=== PATIENT | female | born 1995 | race Caucasian/White ===

== ENCOUNTER 2019-05-14 07:27 | Inpatient (IN) ==
--- OUTSIDE RECORDS SUMMARY | 2019-05-14 07:31 | External Medical Summary | Continuity of Care Document ---
:1995 Author Name Dami Galvin Address Unavailable Unavailable , Care Team Providers Name Role Phone Unavailable Unavailable Unavailable Chon Sewell PA-C Unavailable [email or web address] Acute sinusitis (461.9) (J01.90) Allergies and Adverse Reactions Allergy history not documented Medications Azithromycin 250 MG Oral Tablet; Two tab lets p.o. x one day, then one tablet p.o. x 4 days. stay off medicine for 5 days. then repeat. AMBER Sewell Start: 02-Apr-2010 Quantity: 6 Refills: 1 Procedures History of Tonsillectomy With Adenoidectomy Status: Completed Immunizations Hepatitis B On: 1993 Hepatitis B On: 1993 IPV On: 1993 HIB On: 1993 DTaP On: 1993 IPV On: 1993 HIB On: 1993 DTaP On: 1993 Hepatitis B On: 04-Feb-1994 HIB On: May-1994 DTaP On: May-1994 MMR On: 20-Nov-1994 IPV On: 21-Jan-1995 HIB On: 21-Jan-1995 DTaP On: 21-Jan-1995 IPV On: 12-Dec-1998 DTaP On: 12-Dec-1998 MMR On: 12-Dec-1998 PPD On: 12-Dec-1998 Decavac 5-2 LFU INJ On: 16-Apr-2005 Meningo (Menactra) On: 23-Mar-2008 HPV (Gardasil) On: 23-Mar-2008 HPV (Gardasil) On: Jun-2008 Varicella Comments:had disease Family History Grandfather Family history of Diabetes Mellitus (V18.0) Status: Active Plan of Treatment Planned Observations Planned Goals not documented Results No Known Results Results not documented
[2019-05-14] MEDS ORDERED: OXYTOCIN 30 UNITS/500 ML BAG IV PRN ×3 (07:49→21:16)
[2019-05-14 08:09] LABS: Hematocrit (blood only) 34.4 % (37-47); Hemoglobin 11.9 g/dL (12.0-16.0); Mean Corpuscular Volume 81.9 fL (80-100); Mean Platelet Volume 11.3 fL (7.4-10.4); Platelet Count 195 K/uL (130-400); RDW Coefficient of Variation 14.5 % (11.5-14.5); RDW Standard Deviation 42.7 fL (36.4-46.3); White Blood Count 12.39 K/uL (4.8-10.8)
--- NOTE | 2019-05-14 08:52 | Obstetrical Progress Note ---
Date of Service May 14, 2019 Subjective Admission Note 23 F P0000 at 42 weeks admitted for induction of labor for post dates. She is GBS negative. Cervix 4/80/-2/vertex/soft/anterior/intact. EFW 7.5 lbs. Will start with Oxytocin for induction. Anticipate normal delivery. Results & Data Vital Signs (Past 12 Hours) Vital Signs Temp Pulse Resp BP 05/14/19 07:50 107 H 154/97 H 05/14/19 07:44 37.2 C 18 05/14/19 07:34 109 H 165/95 H
[2019-05-14 08:57] LABS: Mean Corpuscular Hgb Conc 34.6 g/dL (32-36)
[2019-05-14] MEDS: LACTATED RINGER'S 1,000 ML IV PRN ×3 (09:08→17:34)
[2019-05-14] MEDS ORDERED: BUPIVACAINE 0.25% 30 ML VIAL ONE (12:07)
[2019-05-14] MEDS ORDERED: ePHEDrine sulfate 50 MG/ML AMP ONE (12:08)
[2019-05-14] MEDS ORDERED: fentaNYL 2MCG/ML ROPIV 1.25MG/ML 100 ML BAG EPI ONE (12:08)
[2019-05-14] MEDS ORDERED: fentaNYL citrate 100 MCG/2 ML VIAL ONE (12:08)
--- NOTE | 2019-05-14 12:14 | History & Physical Report ---
Date of Service May 14, 2019 Assessment & Plan (1) Post-dates : 23 yo at 41 wks, IOL for postdates Elevated BP's, h/o elevated LFT's with normal levels in 3rd trimester On pitocin with ctxs and cervical change Plan monitor, labs, epidural for pain Anticipate (2) Hypertension affecting in third trimester: History of Present Illness Chief Complaint: Induction Primary Care Provider: NO PCP Patient is a 23 yo at 41 wks admitted for IOL for postdates by Dr. Daly She is on pitocin since this morning Feels ctxs and getting painful No LOF/VB +FM Her has samson uncomplicated except 1) Obesity, passed 3 hour OGTT 2) Elevated LFT's, early and has been normal 3) Cholelithiasis, denies pain Allergies Allergy/AdvReac Type Severity Reaction Status Date / Time No Known Allergies Allergy Mild Verified 05/14/19 07:38 Home Medications Home Medications Medication Instructions Recorded Confirmed Type vit no.[id number]-[id number]-lakjv 1 tab PO DAILY 05/14/19 05/14/19 History [ Vitamin] Patient History Medical History H/O tooth extraction Hx of fracture of leg right lower leg Surgical History History of tonsillectomy and adenoidectomy Social History Preferred Language: Stateless Communication Ability: Effective Beliefs That Will Affect Care: None marital status: Current Living Situation: Spouse Other Information That Helps Us Care for You: No Feels Safe at Home: Yes Safety Concerns: Feels Safe At This Time Smoking Status: Never smoker Hx Alcohol Use: No Hx Substance Use: No [employer] History denies any h/o STD's Review of Systems All systems reviewed & are unremarkable except as noted in HPI & below Physical Exam Constitutional: WD/WN, vitals as above well developed and well nourished Genitourinary: VE; 4-5 cm/ 80%/ -2, bulging bag Results & Data Vital Signs (Past 12 Hours) Vital Signs Temp Pulse Resp BP 05/14/19 12:00 85 18 147/83 H 05/14/19 11:20 77 143/87 H 05/14/19 10:50 37.0 C 16 05/14/19 10:41 73 132/71 05/14/19 09:08 90 135/80 05/14/19 09:04 16 05/14/19 07:50 107 H 154/97 H 05/14/19 07:44 37.2 C 05/14/19 07:34 109 H 165/95 H Code Status & VTE Plan VTE Prophylaxis Plan VTE Prophylaxis will be ordered: No Monitoring External Monitor Category I Tocodynamometer Contractions: q 2-3 min
[2019-05-14] MEDS ORDERED: NALOXONE HCL 0.4 MG/1 ML VIAL/CARP IV PRN (12:18)
[2019-05-14] MEDS ORDERED: NALOXONE HCL 1 MG in SODIUM CHLORIDE 0.9% 1000ML 1,000 ML IV PRN (12:18)
[2019-05-14] MEDS ORDERED: NALBUPHINE HCL INJ 10 MG/ML AMP IV PRN (12:18)
[2019-05-14] MEDS ORDERED: ePHEDrine sulfate 50 MG/ML AMP IV PRN (12:18)
[2019-05-14] MEDS ORDERED: fentaNYL 2MCG/ML ROPIV 1.25MG/ML 100 ML BAG EPI PRN (12:18)
[2019-05-14] MEDS ORDERED: DiphenhydrAMINE HCL 50 MG/ML VIAL IV PRN (12:18)
--- NOTE | 2019-05-14 12:47 | Anesthesiology Consultation ---
Date of Service May 14, 2019 Assessment & Plan Chart Review Chart Review: Acceptable Risk for Labor Epidural Consults Requested none History Height/Weight Height: 5 ft 3 in Weight: 105.233 kg Allergies Allergy/AdvReac Type Severity Reaction Status Date / Time No Known Allergies Allergy Mild Verified 05/14/19 07:38 Medications Home Medications Medication Instructions Recorded Confirmed Last Taken vit no.[id number]-[id number] 1 tab PO DAILY 05/14/19 05/14/19 05/12/19 [ Vitamin] Active Medications Generic Name Dose Route Start Last Admin Trade Name Freq PRN Reason Stop Dose Admin Lactated Ringer's 1,000 mls @ 125 mls/hr 05/14/19 07:49 05/14/19 12:42 Lr IV 05/16/19 07:48 999 mls/hr .Q8H PRN Administration L&D Protocol Protocol Oxytocin 30 units in 500 mls @ 6 mls/hr 05/14/19 08:47 05/14/19 12:00 Pitocin IV 05/16/19 08:46 0.36 units/hr .Q24H PRN 6 mls/hr Labor Induction/Augmentation Titration Protocol 0.36 UNITS/HR Ropivacaine 100 ml 05/14/19 12:18 05/14/19 12:39 Epidural (L&D) EPI 05/15/19 12:17 100 ml PRN PRN Administration Pain R/T Labor Protocol Past Medical History Medical History H/O tooth extraction Hx of fracture of leg right lower leg Past Surgical History Surgical History History of tonsillectomy and adenoidectomy Social History Smoking Status: Never smoker Hx Alcohol Use: No Hx Substance Use: No Physical Exam Vital Signs Last Vital Signs Temp 37.0 C 05/14/19 10:50 Pulse 92 H 05/14/19 12:44 Resp 18 05/14/19 12:00 BP 149/69 H 05/14/19 12:38 Pulse Ox 100 05/14/19 12:44 Testing Laboratory Results 05/14/19 07:56
[2019-05-14 13:17] LABS: Albumin Level 3.1 gm/dl (3.4-5.0); Calcium 9.6 mg/dl (8.5-10.1); Est GFR (African American) 143.7; Potassium 3.9 mmol/L (3.5-5.1)
[2019-05-14 13:20] LABS: Albumin Globulin Ratio 0.7 (0.9-2); Bilirubin,Total 0.4 mg/dl (0.2-1); Globulin 4.4 gm/dl (2.5-4.0); Total Protein 7.5 gm/dl (6.4-8.2)
[2019-05-14 13:49] LABS: Fibrinogen 655 mg/dl (184-400); INR 0.9 (0.9-1.1); Partial Thromboplastin Ratio 0.9; Prothrombin Time 9.7 Seconds (9.0-12.0)
[2019-05-14 15:34] LABS: Appearance Urine Clear (Clear); Bilirubin Urine Negative (Negative); Blood Urine Negative (Negative); Color Urine Yellow; Glucose Urine UA Negative (Negative); Ketones Urine 2+ (Negative); Leukocyte Esterase Urine Negative (Negative); Nitrite Urine Negative (Negative); Protein Urine Negative (Negative); Specific Gravity Urine 1.011 (1.000-1.030); Urobilinogen Urine Negative (Negative)
--- NOTE | 2019-05-14 16:18 | Obstetrical Progress Note ---
Date of Service May 14, 2019 Subjective Patient is reevaluated She is comfortable with epidural Labs WNL VE: 6/ 80%/ -1, bulging bag, AROM'ed, small amount fluid with blood and lanugo mixed FHR categ I Continue to monitor Anticipate Results & Data Vital Signs (Past 12 Hours) Vital Signs Temp Pulse Resp BP Pulse Ox 05/14/19 16:14 99 H 97 05/14/19 16:09 98 H 98 05/14/19 16:04 102 H 97 05/14/19 16:03 107 H 146/82 H 05/14/19 16:00 16 05/14/19 15:59 98 H 99 05/14/19 15:54 102 H 98 05/14/19 15:49 101 H 97 05/14/19 15:48 104 H 157/84 H 05/14/19 15:44 106 H 98 05/14/19 15:39 102 H 98 05/14/19 15:34 96 H 155/90 H 98 05/14/19 15:29 96 H 98 05/14/19 15:24 99 H 98 05/14/19 15:19 105 H 154/84 H 98 05/14/19 15:14 101 H 98 05/14/19 15:09 102 H 98 05/14/19 15:04 92 H 154/78 H 98 05/14/19 15:00 37.0 C 16 05/14/19 14:59 89 98 05/14/19 14:54 86 98 05/14/19 14:49 85 98 05/14/19 14:48 80 125/61 05/14/19 14:44 84 99 05/14/19 14:39 82 99 05/14/19 14:34 86 99 05/14/19 14:33 79 128/62 05/14/19 14:29 83 99 05/14/19 14:24 91 H 99 05/14/19 14:19 83 122/58 L 98 05/14/19 14:14 84 97 05/14/19 14:09 82 98 05/14/19 14:04 87 99 05/14/19 14:03 83 126/57 L 05/14/19 14:00 16 05/14/19 13:59 81 98 05/14/19 13:54 82 99 05/14/19 13:50 81 122/70 05/14/19 13:49 85 98 05/14/19 13:44 89 97 05/14/19 13:39 85 97 05/14/19 13:34 88 99 05/14/19 13:33 89 125/65 05/14/19 13:30 16 05/14/19 13:29 86 99 05/14/19 13:24 86 99 05/14/19 13:19 77 119/71 99 05/14/19 13:14 85 100 05/14/19 13:09 86 100 05/14/19 13:04 89 100 05/14/19 13:02 85 141/65 H 05/14/19 12:59 82 144/66 H 100 05/14/19 12:56 83 137/63 05/14/19 12:55 85 141/63 H 05/14/19 12:54 89 100 05/14/19 12:53 87 138/68 05/14/19 12:50 90 149/69 H 05/14/19 12:49 94 H 99 05/14/19 12:46 100 H 145/68 H 05/14/19 12:44 92 H 100 05/14/19 12:39 94 H 99 05/14/19 12:38 102 H 149/69 H 05/14/19 12:35 100 H 152/83 H 05/14/19 12:34 106 H 99 05/14/19 12:32 93 H 155/77 H 05/14/19 12:29 101 H 100 05/14/19 12:24 118 H 100 05/14/19 12:00 85 18 147/83 H 05/14/19 11:20 77 143/87 H 05/14/19 10:50 37.0 C 05/14/19 10:41 73 132/71 05/14/19 09:08 90 135/80 05/14/19 09:04 16 05/14/19 07:50 107 H 154/97 H 05/14/19 07:44 37.2 C 18 05/14/19 07:34 109 H 165/95 H
--- NOTE | 2019-05-14 19:20 | Obstetrical Progress Note ---
Date of Service May 14, 2019 Subjective Patient has been pushing for about 1 hr and 10 min I checked her twice Head was at +1 about an hour ago, now at +2, caput at +3 FHR reassuring Plan to continue to monitor and pushing Results & Data Vital Signs (Past 12 Hours) Vital Signs Temp Pulse Resp BP Pulse Ox 05/14/19 19:18 106 H 136/85 05/14/19 19:15 105 H 90 05/14/19 19:14 106 H 99 05/14/19 19:10 37.8 C H 98 H 18 89 L 05/14/19 19:09 103 H 95 05/14/19 19:04 95 H 92 05/14/19 19:03 97 H 133/68 05/14/19 19:00 16 05/14/19 18:59 98 H 98 05/14/19 18:58 102 H 81 L 05/14/19 18:54 115 H 100 05/14/19 18:49 96 H 99 05/14/19 18:48 96 H 128/66 05/14/19 18:45 96 H 78 L 05/14/19 18:44 96 H 96 05/14/19 18:39 134 H 88 L 05/14/19 18:34 109 H 100 05/14/19 18:33 92 H 141/79 H 05/14/19 18:29 119 H 98 05/14/19 18:24 119 H 99 05/14/19 18:20 103 H 92 05/14/19 18:19 100 H 98 05/14/19 18:18 101 H 149/82 H 05/14/19 18:14 107 H 98 05/14/19 18:09 108 H 99 05/14/19 18:04 120 H 99 05/14/19 18:03 97 H 141/87 H 05/14/19 18:00 36.9 C 16 05/14/19 17:59 105 H 98 05/14/19 17:54 116 H 99 05/14/19 17:49 94 H 96 05/14/19 17:44 98 H 98 05/14/19 17:39 94 H 99 05/14/19 17:34 92 H 96 05/14/19 17:33 95 H 125/79 05/14/19 17:29 104 H 97 05/14/19 17:24 94 H 98 08/16/19 17:19 91 H 99 05/14/19 17:18 87 131/81 05/14/19 17:14 91 H 98 05/14/19 17:09 81 97 05/14/19 17:04 86 98 05/14/19 17:03 82 117/62 05/14/19 16:59 85 98 05/14/19 16:54 84 98 05/14/19 16:49 94 H 124/74 99 05/14/19 16:44 116 H 98 05/14/19 16:41 98 H 173/81 H 05/14/19 16:39 101 H 97 05/14/19 16:34 107 H 170/81 H 98 05/14/19 16:29 96 H 97 05/14/19 16:24 98 H 97 05/14/19 16:22 100 H 171/99 H 05/14/19 16:19 95 H 174/105 H 97 05/14/19 16:14 99 H 97 05/14/19 16:09 98 H 98 05/14/19 16:04 102 H 97 05/14/19 16:03 107 H 146/82 H 05/14/19 16:00 16 05/14/19 15:59 98 H 99 05/14/19 15:54 102 H 98 05/14/19 15:49 101 H 97 05/14/19 15:48 104 H 157/84 H 05/14/19 15:44 106 H 98 05/14/19 15:39 102 H 98 05/14/19 15:34 96 H 155/90 H 98 05/14/19 15:29 96 H 98 05/14/19 15:24 99 H 98 05/14/19 15:19 105 H 154/84 H 98 05/14/19 15:14 101 H 98 05/14/19 15:09 102 H 98 05/14/19 15:04 92 H 154/78 H 98 05/14/19 15:00 37.0 C 16 05/14/19 14:59 89 98 05/14/19 14:54 86 98 05/14/19 14:49 85 98 05/14/19 14:48 80 125/61 05/14/19 14:44 84 99 05/14/19 14:39 82 99 05/14/19 14:34 86 99 05/14/19 14:33 79 128/62 05/14/19 14:29 83 99 05/14/19 14:24 91 H 99 05/14/19 14:19 83 122/58 L 98 05/14/19 14:14 84 97 05/14/19 14:09 82 98 05/14/19 14:04 87 99 05/14/19 14:03 83 126/57 L 05/14/19 14:00 16 05/14/19 13:59 81 98 05/14/19 13:54 82 99 05/14/19 13:50 81 122/70 05/14/19 13:49 85 98 05/14/19 13:44 89 97 05/14/19 13:39 85 97 05/14/19 13:34 88 99 05/14/19 13:33 89 125/65 05/14/19 13:30 16 05/14/19 13:29 86 99 05/14/19 13:24 86 99 05/14/19 13:19 77 119/71 99 05/14/19 13:14 85 100 05/14/19 13:09 86 100 05/14/19 13:04 89 100 05/14/19 13:02 85 141/65 H 05/14/19 12:59 82 144/66 H 100 05/14/19 12:56 83 137/63 05/14/19 12:55 85 141/63 H 05/14/19 12:54 89 100 05/14/19 12:53 87 138/68 05/14/19 12:50 90 149/69 H 05/14/19 12:49 94 H 99 05/14/19 12:46 100 H 145/68 H 05/14/19 12:44 92 H 100 05/14/19 12:39 94 H 99 05/14/19 12:38 102 H 149/69 H 05/14/19 12:35 100 H 152/83 H 05/14/19 12:34 106 H 99 05/14/19 12:32 93 H 155/77 H 05/14/19 12:29 101 H 100 05/14/19 12:24 118 H 100 05/14/19 12:00 85 18 147/83 H 05/14/19 11:20 77 143/87 H 05/14/19 10:50 37.0 C 05/14/19 10:41 73 132/71 05/14/19 09:08 90 135/80 05/14/19 09:04 05/14/19 07:50 107 H 154/97 H 05/14/19 07:44 37.2 C 05/14/19 07:34 109 H 165/95 H
[2019-05-14] MEDS ORDERED: CEFAZOLIN 2000MG 2,000 MG/15 ML SYR IV STA (20:21)
[2019-05-14] MEDS ORDERED: BENZOCAINE 20% AER SPR 82.5 GM CAN EXT ONE (20:40)
[2019-05-14] MEDS ORDERED: DIPHTHERIA/TETANUS/PERTUSSIS 0.5 ML SYR/VIAL IM ONE (21:16)
[2019-05-14] MEDS ORDERED: HYDROCORTISONE ACETATE 25 MG SUPP PR PRN (21:16)
[2019-05-14] MEDS ORDERED: ACETAMINOPHEN 325 MG TAB PO PRN (21:16)
[2019-05-14] MEDS ORDERED: BENZOCAINE 20% AER SPR 82.5 GM CAN EXT PRN (21:16)
[2019-05-14] MEDS ORDERED: SUPERCREAM 0.870% 15 GM JAR EXT PRN (21:16)
[2019-05-14] MEDS ORDERED: MEASLES, MUMPS & RUBELLA VIRUS VIAL SQ ONE (21:17)
[2019-05-14] MEDS ORDERED: LACTATED RINGER'S 1,000 ML IV SCH (21:30)
[2019-05-14] MEDS: OXYCODONE/ACETAMINOPHEN 5mg/325mg TAB PO PRN (21:50)
[2019-05-14] MEDS: IBUPROFEN 600 MG TAB PO PRN (21:50)
[2019-05-14] MEDS: BISACODYL 5 MG TABEC PO SCH (22:54)
[2019-05-15] MEDS: OXYCODONE/ACETAMINOPHEN 5mg/325mg TAB PO PRN ×4 (01:31→23:24)
[2019-05-15] MEDS: IBUPROFEN 600 MG TAB PO PRN ×5 (01:31→20:03)
--- NOTE | 2019-05-15 02:26 | Delivery Summary ---
DATE OF OPERATION: 05/14/2019 TIME OF DELIVERY: 2003 p.m. TIME OF DELIVERY OF PLACENTA: 2017 p.m. DETAILS OF DELIVERY: The patient was found to be fully dilated and desired to push. She pushed for about 2 hours and delivered the head over the perineum. The shoulders were delivered with minimal traction. Baby was handed off to the mother where mouth and nose were suctioned. Cord was clamped x2 and cut, it was 3-vessel cord. Then, perineum and vagina were checked for lacerations. There was a partial third-degree perineal laceration with an extension to both lateral vaginal frias and the left labia. Rectal exam was done. The patient had good sphincter tone, but some of the perineal body muscles were involved around the external sphincter. Gloves were changed. Those muscles around external sphincter were supported by holding the muscles with Allis clamps, brought to the midline and [id number] stitches placed around these muscles and the sphincter tone was repeated again to be excellent and no sutures were felt in the rectal mucosa. Gloves were changed and then these muscles were again reinforced with the perineal body muscles and with a different suture. Vagina mucosa was repaired with 2-0 Vicryl in a running fashion. There was an extension on the right side of the vagina, which was also repaired with 2-0 Vicryl in a running fashion and then the left labial extension was repaired with 3-0 Vicryl in a running fashion. All these 3 lines were combined in the midline and then brought to the bulbocavernosis muscles together, perineal body muscles together and skin in a subcuticular fashion. There was some oozing in the middle of the repair, those were repaired with 2-0 Vicryl. The placenta was delivered spontaneous as intact and complete. Uterus was explored, found to be empty and lower segment was cleared of all clots and debris. Fundus was firm. Then, vagina was checked for lacerations. There was a minimal oozing on the repair and Tomas powder was placed over the oozing and then one 4 x 4 sponge was placed for packing and the patient was placed on [place] catheter for drainage. Rectal exam was repeated. Excellent sphincter tone was noted. No sutures were felt. Mom and baby tolerated the procedure well. Sponge, lap, needle count was correct x2. Baby was a viable male , Apgars 8/9, weight was 9 pounds 12 ounces. EBL was 400 ml The patient was given 2 g of cefazolin during repair. No complications happened and I was present during whole procedure. I attest to the content of the Intraoperative Record and any orders documented therein. Any exceptions are noted below. MTDD
[2019-05-15 07:00] LABS: Hematocrit (blood only) 30.4 % (37-47); Hemoglobin 10.2 g/dL (12.0-16.0); Mean Corpuscular Hgb Conc 33.6 g/dL (32-36); Mean Corpuscular Volume 81.7 fL (80-100); Mean Platelet Volume 11.8 fL (7.4-10.4); Platelet Count 183 K/uL (130-400); RDW Coefficient of Variation 14.5 % (11.5-14.5); RDW Standard Deviation 42.6 fL (36.4-46.3); Red Blood Count 3.72 M/uL (4.2-5.4); White Blood Count 15.07 K/uL (4.8-10.8)
[2019-05-15] MEDS: DOCUSATE SODIUM 100 MG CAP PO SCH ×2 (08:52→21:10)
[2019-05-15] MEDS: PRENATAL VITAMIN 1 TAB PO SCH (08:53)
[2019-05-15] MEDS: FERROUS SULFATE 325 MG TAB PO SCH (08:53)
--- NOTE | 2019-05-15 09:20 | Obstetrical Progress Note ---
Date of Service May 15, 2019 Subjective Patient is seen and examined. She feels well, no complaints. Ambulating without dizziness Voiding without difficulty Tolerating regular diet with out N&V Bleeding is minimal No fever/ chills/ CP/ SOB/ N&V/ Leg pain Breast feeding without problems Vital Signs Temp Pulse Pulse Resp BP BP 05/15/19 04:30 36.5 C 89 16 132/95 05/15/19 00:15 37.4 C 95 H 18 137/72 05/14/19 23:45 95 H 137/72 05/14/19 23:04 37.4 C 109 H 18 144/69 H 05/14/19 22:49 121 H 155/77 H 05/14/19 22:34 112 H 18 141/77 H 05/14/19 22:19 97 H 138/73 05/14/19 22:04 103 H 142/76 H 05/14/19 21:49 116 H 18 141/81 H 05/14/19 21:34 37.2 C 103 H 18 136/78 05/15/19 05/14/19 05/14/19 Range/Units 06:33 15:15 12:39 WBC 15.07 H (4.8-10.8) K/uL RBC 3.72 L (4.2-5.4) M/uL Hgb 10.2 L (12.0-16.0) g/dL Hct 30.4 L (37-47) % MCV 81.7 (80-100) fL MCH 27.4 (25-34) pg MCHC 33.6 (32-36) g/dL RDW Std Deviation 42.6 (36.4-46.3) fL RDW Coeff of Oh 14.5 (11.5-14.5) % Plt Count 183 (130-400) K/uL MPV 11.8 H (7.4-10.4) fL PT (9.0-12.0) Seconds INR (0.9-1.1) APTT (21.0-31.0) Seconds PTT Ratio Fibrinogen (184-400) mg/dl Sodium (136-145) mmol/L Potassium (3.5-5.1) mmol/L Chloride (98-107) mmol/L Carbon Dioxide (21-32) mmol/L Anion Gap (3-11) BUN (7-18) mg/dl Creatinine (0.6-1.2) mg/dl Est Cr Clr Drug Dosing ml/min Est GFR ( Amer) Est GFR (Non-Af Amer) BUN/Creatinine Ratio (10-20) Glucose (70-99) mg/dl Calcium (8.5-10.1) mg/dl Total Bilirubin (0.2-1) mg/dl AST (15-37) U/L ALT (12-78) U/L Alkaline Phosphatase (45-117) U/L Lactate Dehydrogenase 182 (84-246) U/L Total Protein (6.4-8.2) gm/dl Albumin (3.4-5.0) gm/dl Globulin (2.5-4.0) gm/dl Albumin/Globulin Ratio (0.9-2) Urine Color Yellow Urine Appearance Clear (Clear) Urine pH 6.0 (4.5-7.5) Ur Specific Flushing 1.011 (1.000-1.030) Urine Protein Negative (Negative) Urine Glucose (UA) Negative (Negative) Urine Ketones 2+ H (Negative) Urine Blood Negative (Negative) Urine Nitrite Negative (Negative) Urine Bilirubin Negative (Negative) Urine Urobilinogen Negative (Negative) Ur Leukocyte Esterase Negative (Negative) 05/14/19 05/14/19 Range/Units 12:39 12:39 WBC (4.8-10.8) K/uL RBC (4.2-5.4) M/uL Hgb (12.0-16.0) g/dL Hct (37-47) % MCV (80-100) fL MCH (25-34) pg MCHC (32-36) g/dL RDW Std Deviation (36.4-46.3) fL RDW Coeff of Oh (11.5-14.5) % Plt Count (130-400) K/uL MPV (7.4-10.4) fL PT 9.7 (9.0-12.0) Seconds INR 0.9 (0.9-1.1) APTT 24.0 (21.0-31.0) Seconds PTT Ratio 0.9 Fibrinogen 655 H (184-400) mg/dl Sodium 139 (136-145) mmol/L Potassium 3.9 (3.5-5.1) mmol/L Chloride 107 (98-107) mmol/L Carbon Dioxide 22 (21-32) mmol/L Anion Gap 10.0 (3-11) BUN 6 L (7-18) mg/dl Creatinine 0.64 (0.6-1.2) mg/dl Est Cr Clr Drug Dosing 156.0 ml/min Est GFR ( Amer) 143.7 Est GFR (Non-Af Amer) 124.0 BUN/Creatinine Ratio 9.0 L (10-20) Glucose 84 (70-99) mg/dl Calcium 9.6 (8.5-10.1) mg/dl Total Bilirubin 0.4 (0.2-1) mg/dl AST 19 (15-37) U/L ALT 18 (12-78) U/L Alkaline Phosphatase 232 H (45-117) U/L Lactate Dehydrogenase (84-246) U/L Total Protein 7.5 (6.4-8.2) gm/dl Albumin 3.1 L (3.4-5.0) gm/dl Globulin 4.4 H (2.5-4.0) gm/dl Albumin/Globulin Ratio 0.7 L (0.9-2) Urine Color Urine Appearance (Clear) Urine pH (4.5-7.5) Ur Specific Flushing (1.000-1.030) Urine Protein (Negative) Urine Glucose (UA) (Negative) Urine Ketones (Negative) Urine Blood (Negative) Urine Nitrite (Negative) Urine Bilirubin (Negative) Urine Urobilinogen (Negative) Ur Leukocyte Esterase (Negative) PE: General: Alert, orientedx3, NAD Abd: soft, NT, fundus firm, below Umbilicus Perineum intact, Lochia rubra minimal Removed one 4x4 sponge from lower vagina Ext; NT, no edema AP: 23 yo s/p , ppd# 1 VSS Afebrile doing well Continue routine care All questions were answered D/C home tomorrow Results & Data Vital Signs (Past 12 Hours) Vital Signs Temp Pulse Pulse Resp BP BP 05/15/19 04:30 36.5 C 89 16 132/95 05/15/19 00:15 37.4 C 95 H 18 137/72 05/14/19 23:45 95 H 137/72 05/14/19 23:04 37.4 C 109 H 18 144/69 H 05/14/19 22:49 121 H 155/77 H 05/14/19 22:34 112 H 18 141/77 H 05/14/19 22:19 97 H 138/73 05/14/19 22:04 103 H 142/76 H 05/14/19 21:49 116 H 18 141/81 H 05/14/19 21:34 37.2 C 103 H 18 136/78
[2019-05-15] MEDS: BISACODYL 5 MG TABEC PO SCH (21:10)
[2019-05-16] MEDS: IBUPROFEN 600 MG TAB PO PRN ×2 (05:54→11:17)
[2019-05-16 06:53] LABS: Hematocrit (blood only) 28.7 % (37-47); Hemoglobin 9.4 g/dL (12.0-16.0)
--- NOTE | 2019-05-16 07:26 | Obstetrical Progress Note ---
Date of Service May 16, 2019 Subjective doing well planning on discharge passing gas Physical Exam Constitutional: WD/WN, vitals as above comfortable abdomen soft no joe neg Tika's for discharge home follow up in 6 weeks Results & Data Vital Signs (Past 12 Hours) Vital Signs Temp Pulse Resp BP 05/15/19 23:25 36.7 C 81 18 118/71 05/15/19 19:50 36.7 C 99 H 18 124/84
[2019-05-16] MEDS: DOCUSATE SODIUM 100 MG CAP PO SCH (08:33)
[2019-05-16] MEDS: FERROUS SULFATE 325 MG TAB PO SCH (08:33)
[2019-05-16] MEDS: BISACODYL 5 MG TABEC PO SCH (08:33)
[2019-05-16] MEDS: PRENATAL VITAMIN 1 TAB PO SCH (08:33)
--- NOTE | 2019-06-02 09:14 | Anesthesia Procedure Note ---
Date of Service June 02, 2019 Anesthesia Post Epidural Note Vital Signs Vital Signs: Temp Pulse Resp BP Pulse Ox 36.5 C 80 18 120/77 98 05/16/19 11:37 05/16/19 11:37 05/16/19 11:37 05/16/19 11:37 05/16/19 11:37 Pain Intensity Lower Abdomen: Pain Intensity: 2 Bilateral Episiotomy/Laceration: Pain Intensity: 2 Notes Mental Status: alert / awake / arousable Nausea / Vomiting: adequately controlled Pain: adequately controlled Airway Patency, RR, SpO2: stable & adequate BP & HR: stable & adequate Hydration State: stable & adequate Neuraxial Anesthesia: was administered and sensory block is resolving Anesthetic Complications: no major complications apparent and Pt Satisfied with anesthetic care Epidural: Removed without complications (Late entry: EPidural catheter was removed with tip intact. There were no complaints or complications noted.) and With tip intact
== END 2019-05-16 13:35 | disposition home or self-care (01) | DRG 768 ==
LOC: 4S1 07:27 → 4S2 05-15 00:08

== ENCOUNTER 2021-01-29 01:17 | Inpatient (IN) ==
[2021-01-29] MEDS ORDERED: OXYTOCIN 30 UNITS/500 ML BAG IV PRN ×4 (01:58→18:23)
[2021-01-29] MEDS ORDERED: ONDANSETRON INJ 2 MG/ML 2 ML VIAL IV PRN ×2 (02:12→07:10)
--- NOTE | 2021-01-29 02:12 | History & Physical Report ---
Date of Service January 29, 2021 Assessment & Plan (1) Premature rupture of membranes: 25-year-old female -0-0-1 at 37 weeks and 4 days of gestation presenting with premature rupture of membranes at term, no signs of symptoms of labor, presentation Vertex but ballotable. Vital signs stable afebrile heart rate reassuring GBS negative Discussed the management either expectant management versus 30 induction of labor due to rupture of membranes at term and remote from delivery with decr eased risk of intrauterine infection. Patient desires induction of labor but prefers to eat before Pitocin will be started. Plan to admit, labs, IV fluids, low-dose Pitocin per protocol, SCDs and epidural when patient desires. History of Present Illness Primary Care Provider: NO PCP Patient is a 25-year-old -0-0-1 at 37 weeks and 4 days of gestation who woke up this morning after midnight with gush of fluid leaking through her underwear pants and on the sheets. It has been clear. She denies contractions nor abdominal pain. She reports good movements. Her has been uncomplicated, GBS negative. She had spontaneous vaginal delivery in 2019 by myself baby was 9 pounds 11 o unces no shoulder dystocia noted. She has been having growth scans during this last one was about 1/2 weeks ago and baby was measuring 7 pounds 5 ounces which was at 91th centile. She was scheduled for induction of labor at 39 weeks. Allergies Allergy/AdvReac Type Severity Reaction Status Date / Time No Known Allergies Allergy Mild Verified 01/29/21 01:39 Home Medications Medication Instructions Recorded Confirmed Type Vitamin 1 tab PO DAILY 05/14/19 01/29/21 History Patient History Medical History (Updated 01/29/21 @ 02:10 by Keny Brown MD) Hx of fracture of leg right lower leg Surgical History H/O tooth extraction History of tonsillectomy and adenoidectomy Social History Smoking Status: Never smoker Hx Alcohol Use: No Hx Substance Use: No Preferred Language: Mauritanian Communication Ability: Effective Beliefs That Will Affect Care: None marital status: Current Living Situation: Spouse Feels Safe at Home: Yes Assistive Devices: None BEAN SNAPPER History Denies any history of STDs including chlamydia, gonorrhea, genital herpes. Review of Systems All systems reviewed & are unremarkable except as noted in HPI & below Physical Exam Constitutional: WD/WN, vitals as above well developed and well nourished Comfortable in bed. Gastrointestinal (Abdomen): normal bowel sounds, soft, nontender, no hepatosplenomegaly (Gravid, Christophe 8 pounds.) Genitourinary: no vaginal lesions, no adnexal mass normal external appearance Manual OB Exam: + cervical dilation 1 cm, + cervical effacement 30%, + station high and + amniotic fluid clear and nitrazine positive (Amnisure positive) OB Exam Monitor Tracing: + external uterine monitor used and + category I Results & Data ([facility]) Vital Signs (Past 12 Hours) Vital Signs Pulse BP 01/29/21 01:34 96 H 128/72 (1) Premature rupture of membranes PROM onset of labor timing: unspecified duration between rupture of membranes and onset of labor PROM gestational age: full term Qualified Code(s): O42.92 - Full-term premature rupture of membranes, unspecified as to length of time between rupture and onset of labor
[2021-01-29 02:40] LABS: Hematocrit (blood only) 34.9 % (37-47); Hemoglobin 12.4 g/dL (12.0-16.0); Mean Corpuscular Hemoglobin 31.2 pg (25-34); Mean Corpuscular Hgb Conc 35.5 g/dL (32-36); Mean Corpuscular Volume 87.7 fL (80-100); Mean Platelet Volume 11.8 fL (7.4-10.4); Platelet Count 207 K/uL (130-400); RDW Coefficient of Variation 13.5 % (11.5-14.5); RDW Standard Deviation 42.9 fL (36.4-46.3); Red Blood Count 3.98 M/uL (4.2-5.4); White Blood Count 8.85 K/uL (4.8-10.8)
[2021-01-29] MEDS: LACTATED RINGER'S 1,000 ML IV PRN ×4 (04:15→16:19)
[2021-01-29] MEDS ORDERED: fentaNYL citrate 100 MCG/2 ML VIAL ONE (07:03)
[2021-01-29] MEDS ORDERED: ePHEDrine sulfate 50 MG/ML AMP ONE (07:03)
[2021-01-29] MEDS ORDERED: BUPIVACAINE 0.25% 30 ML VIAL ONE (07:03)
[2021-01-29] MEDS ORDERED: SODIUM CHLORIDE 0.9% INJ 10 ML VIAL ONE (07:03)
[2021-01-29] MEDS ORDERED: fentaNYL 2MCG/ML ROPIVACAINE 1.25MG/ML 100 ML BAG EPI ONE (07:04)
[2021-01-29] MEDS ORDERED: diphenhydrAMINE 50 MG/ML VIAL IV PRN (07:10)
[2021-01-29] MEDS ORDERED: fentaNYL 2MCG/ML ROPIVACAINE 1.25MG/ML 100 ML BAG EPI PRN (07:10)
[2021-01-29] MEDS ORDERED: NALOXONE HCL 1 MG in SODIUM CHLORIDE 0.9% 1000ML 1,000 ML IV PRN (07:10)
[2021-01-29] MEDS ORDERED: NALOXONE HCL 0.4 MG/1 ML VIAL/CARP IV PRN (07:10)
[2021-01-29] MEDS ORDERED: ePHEDrine sulfate 50 MG/ML AMP IV PRN (07:10)
--- NOTE | 2021-01-29 07:10 | Anesthesiology Consultation ---
Date of Service January 29, 2021 Assessment & Plan ASA ASA2 Proposed Anesthesia Anesthesia Type: Labor Epidural Risk / Benefits Reviewed With: PT / POA / Parent / Guardian, Accepts Plan and Informed Consent Obtained History Height/Weight Height: 5 ft 3 in Weight: 83.915 kg Allergies Allergy/AdvReac Type Severity Reaction Status Date / Time No Known Allergies Allergy Mild Verified 01/29/21 01:39 Medications Home Medications Medication Instructions Recorded Confirmed Last Taken Vitamin 1 tab PO DAILY 05/14/19 01/29/21 01/28/21 18:30 Active Medications Generic Name Dose Route Start Last Admin Trade Name Freq PRN Reason Stop Dose Admin Lactated Ringer's 1,000 mls @ 150 mls/hr 01/29/21 01:58 01/29/21 04:45 Lr IV 01/31/21 01:57 150 mls/hr .[id number] PRN Infusion L&D Protocol Protocol Oxytocin 30 units in 500 mls @ 10 mls/hr 01/29/21 02:00 01/29/21 06:30 Pitocin IV 01/31/21 01:59 0.6 units/hr .Q24H PRN 10 mls/hr Labor Induction/Augmentation Titration Protocol 0.6 UNITS/HR Ropivacaine 100 ml 01/29/21 07:10 01/29/21 07:38 Fentanyl 2mcg/Ml Ropivacaine 1.25mg/Ml 100 Ml Bag EPI 01/30/21 07:09 12 ml PRN PRN Administration Pain R/T Labor Protocol Past Medical History Medical History (Updated 01/29/21 @ 02:10 by Keny Brown MD) Hx of fracture of leg right lower leg Exercise / Class Metabolic Activity II 4-5 Yardwork/Stairs/Walk up hill Past Surgical History Surgical History H/O tooth extraction History of tonsillectomy and adenoidectomy Past Anesthesia History No Hx of Anesthesia Complications and No Family Hx of Anesthesia Complications History of PONV No Hx of PONV and No Hx of Motion Sickness Social History Smoking Status: Never smoker Hx Alcohol Use: No Hx Substance Use: No substance use type: does not use Review of Systems denies fever/cough/ colds/ chest pain/ SOB/ TORSTEN denies TORSTEN Physical Exam Vital Signs Last Vital Signs Temp 37.1 C 01/29/21 06:15 Pulse 114 H 01/29/21 07:54 Resp 18 01/29/21 06:15 BP 124/56 L 01/29/21 07:52 Pulse Ox 93 01/29/21 07:54 ENMT Mouth: no TMJ abnormality and no dentition abnormality Thyromental Distance: > or= 3.5 Finger Breadths Mallampati Class: II Neck neck extension not limited Respiratory normal respiratory effort; no respiratory distress Auscultation: lungs clear to auscultation bilaterally Cardiovascular Rate/Rhythm: regular rate and regular rhythm Neurologic moves all extremities Psychiatric Orientation: alert and oriented x 3 Testing Laboratory Results 01/29/21 02:04
--- NOTE | 2021-01-29 08:10 | Obstetrical Progress Note ---
Date of Service January 29, 2021 Assessment & Plan Admission and Anticipated Discharge Date Admission Date: January 29, 2021 Physical Exam Genitourinary: Manual OB Exam: + cervical dilation 2 cm, + cervical effacement 60%, + station and + amniotic fluid clear OB Exam Monitor Tracing: + external FHT monitor used, + external uterine monitor used, + category I and + normal FHT variability epidural in place Results & Data ([facility]) Vital Signs (Past 12 Hours) Vital Signs Temp Pulse Resp BP Pulse Ox 01/29/21 08:07 89 99 01/29/21 08:06 88 126/62 01/29/21 08:02 82 98 01/29/21 07:57 97 H 97 01/29/21 07:54 114 H 93 01/29/21 07:52 96 H 124/56 L 98 01/29/21 07:47 97 H 125/58 L 98 01/29/21 07:43 96 H 130/60 01/29/21 07:42 100 H 100 01/29/21 07:41 110 H 127/59 L 01/29/21 07:39 36.8 C 99 H 18 120/58 L 01/29/21 07:37 112 H 100 01/29/21 07:36 112 H 133/59 L 01/29/21 07:32 105 H 98 01/29/21 07:30 114 H 138/82 01/29/21 07:27 108 H 98 01/29/21 07:23 86 132/68 01/29/21 07:22 102 H 100 01/29/21 07:17 87 100 01/29/21 07:07 86 134/73 01/29/21 06:15 37.1 C 18 01/29/21 06:03 88 122/59 L 01/29/21 05:06 95 H 127/68 01/29/21 05:05 36.8 C 01/29/21 04:12 37.0 C 74 18 127/62 01/29/21 01:40 36.8 C 16 01/29/21 01:34 96 H 128/72 01/29/21 01:33 36.8 C 18
--- NOTE | 2021-01-29 13:33 | Obstetrical Progress Note ---
Date of Service January 29, 2021 Assessment & Plan Admission and Anticipated Discharge Date Admission Date: January 29, 2021 Physical Exam Genitourinary: Manual OB Exam: + cervical dilation 3 cm, + cervical effacement 80% and + station -2 OB Exam Monitor Tracing: + external FHT monitor used, + external uterine monitor used, + category I and + normal FHT variability Results & Data ([facility]) Vital Signs (Past 12 Hours) Vital Signs Temp Pulse Resp BP Pulse Ox 01/29/21 13:27 86 98 01/29/21 13:22 80 97 01/29/21 13:17 86 122/56 L 95 01/29/21 13:12 85 96 01/29/21 13:07 78 96 01/29/21 13:02 84 96 01/29/21 12:57 86 96 01/29/21 12:52 82 96 01/29/21 12:47 82 118/54 L 95 01/29/21 12:43 85 94 01/29/21 12:42 86 95 01/29/21 12:37 80 95 01/29/21 12:32 82 96 01/29/21 12:27 83 97 01/29/21 12:22 94 H 98 01/29/21 12:17 82 117/56 L 97 01/29/21 12:12 96 H 97 01/29/21 12:07 89 95 01/29/21 12:05 88 94 01/29/21 12:02 92 H 97 01/29/21 11:59 89 20 94 01/29/21 11:57 92 H 97 01/29/21 11:52 90 96 01/29/21 11:48 83 117/66 01/29/21 11:47 91 H 95 01/29/21 11:42 88 98 01/29/21 11:37 84 98 01/29/21 11:32 87 96 01/29/21 11:30 20 01/29/21 11:27 92 H 97 01/29/21 11:22 91 H 97 01/29/21 11:17 84 120/66 97 01/29/21 11:12 87 98 01/29/21 11:07 88 98 01/29/21 11:02 87 97 01/29/21 11:00 37.2 C 18 01/29/21 10:57 95 H 98 01/29/21 10:52 85 98 01/29/21 10:47 81 127/60 97 01/29/21 10:42 87 98 01/29/21 10:37 89 96 01/29/21 10:32 87 95 01/29/21 10:27 84 97 01/29/21 10:22 80 96 01/29/21 10:17 83 126/73 97 01/29/21 10:12 83 95 01/29/21 10:07 84 98 01/29/21 10:02 76 97 01/29/21 09:57 88 96 01/29/21 09:52 89 98 01/29/21 09:47 89 116/63 97 01/29/21 09:45 16 01/29/21 09:42 94 H 97 01/29/21 09:37 92 H 97 01/29/21 09:32 100 H 98 01/29/21 09:27 84 97 01/29/21 09:22 87 97 01/29/21 09:17 85 117/55 L 97 01/29/21 09:15 36.5 C 16 01/29/21 09:12 82 98 01/29/21 09:07 83 96 01/29/21 09:02 91 H 96 01/29/21 09:01 83 18 112/55 L 01/29/21 08:57 84 98 01/29/21 08:52 88 97 01/29/21 08:47 84 122/63 97 01/29/21 08:42 87 97 01/29/21 08:37 92 H 97 01/29/21 08:32 90 18 130/66 97 01/29/21 08:27 92 H 97 01/29/21 08:22 99 H 97 01/29/21 08:17 101 H 96 01/29/21 08:15 93 H 130/72 01/29/21 08:12 89 99 01/29/21 08:07 36.8 C 89 16 99 01/29/21 08:06 88 126/62 01/29/21 08:02 82 98 01/29/21 07:57 97 H 97 01/29/21 07:54 114 H 93 01/29/21 07:52 96 H 124/56 L 98 01/29/21 07:47 97 H 20 125/58 L 98 01/29/21 07:43 96 H 130/60 01/29/21 07:42 100 H 100 01/29/21 07:41 110 H 127/59 L 01/29/21 07:39 36.8 C 99 H 18 120/58 L 01/29/21 07:37 112 H 100 01/29/21 07:36 112 H 133/59 L 01/29/21 07:32 105 H 98 01/29/21 07:30 114 H 138/82 01/29/21 07:27 108 H 98 01/29/21 07:23 86 132/68 01/29/21 07:22 102 H 100 01/29/21 07:17 87 100 01/29/21 07:07 86 134/73 01/29/21 06:15 37.1 C 18 01/29/21 06:03 88 122/59 L 01/29/21 05:06 95 H 127/68 01/29/21 05:05 36.8 C 01/29/21 04:12 37.0 C 74 18 127/62 01/29/21 01:40 36.8 C 16 01/29/21 01:34 96 H 128/72 01/29/21 01:33 36.8 C 18
[2021-01-29] MEDS ORDERED: SUPERCREAM 0.870% 15 GM JAR EXT PRN ×2 (17:49→18:23)
[2021-01-29] MEDS ORDERED: ACETAMINOPHEN 325 MG TAB PO PRN (17:49)
[2021-01-29] MEDS ORDERED: BENZOCAINE 20% AER SPR 82.5 GM CAN EXT PRN ×2 (17:49→18:23)
[2021-01-29] MEDS ORDERED: DIPHTHERIA/TETANUS/PERTUSSIS 0.5 ML SYR/VIAL IM ONE (17:49)
[2021-01-29] MEDS ORDERED: HYDROCORTISONE ACETATE 25 MG SUPP PR PRN ×2 (17:49→18:23)
[2021-01-29] MEDS ORDERED: bisacodyL 10 MG SUPP PR PRN ×2 (17:49→18:23)
[2021-01-29] MEDS ORDERED: IBUPROFEN 600 MG TAB PO PRN (17:49)
--- NOTE | 2021-01-29 17:53 | Delivery Summary ---
Vaginal Delivery Summary Date of Service January 29, 2021 Vaginal Delivery Summary Delivery Note live male DANIS over intact perineum with delayed cord clamping and Apgars of 8/9 weight pending. Cord blood obtained followed by spontaneous delivery of intact placenta. First degree tear repaired with 3/0 Vicryl suture. EBL 100 ml. Final sponge, needle and instrument count are correct. Mom and baby stable.
--- NOTE | 2021-01-29 18:54 | Anesthesia Procedure Note ---
Date of Service January 29, 2021 Anesthesia Post Epidural Note Vital Signs Vital Signs: Temp Pulse Resp BP Pulse Ox 36.8 C 96 H 24 132/64 96 01/29/21 15:35 01/29/21 18:46 01/29/21 17:30 01/29/21 18:46 01/29/21 17:42 Pain Intensity Bilateral Abdomen: Pain Intensity: 1 Notes Mental Status: alert / awake / arousable and participated in evaluation Patient Amnestic to Procedure: Yes Nausea / Vomiting: adequately controlled Pain: adequately controlled Airway Patency, RR, SpO2: stable & adequate BP & HR: stable & adequate Hydration State: stable & adequate Anesthetic Complications: no major complications apparent and Pt Satisfied with anesthetic care
[2021-01-29] MEDS: IBUPROFEN 600 MG TAB PO PRN (20:31)
[2021-01-29] MEDS ORDERED: DOCUSATE SODIUM 100 MG CAP PO SCH (21:00)
[2021-01-29] MEDS: DOCUSATE SODIUM 100 MG CAP PO SCH (21:13)
[2021-01-30] MEDS: ACETAMINOPHEN 325 MG TAB PO PRN ×2 (04:14→10:40)
[2021-01-30 06:21] LABS: Hemoglobin 12.8 g/dL (12.0-16.0); Mean Corpuscular Hemoglobin 31.2 pg (25-34); Mean Corpuscular Hgb Conc 35.6 g/dL (32-36); Mean Corpuscular Volume 87.8 fL (80-100); Mean Platelet Volume 11.7 fL (7.4-10.4); Platelet Count 187 K/uL (130-400); RDW Coefficient of Variation 13.6 % (11.5-14.5); RDW Standard Deviation 43.6 fL (36.4-46.3); White Blood Count 11.75 K/uL (4.8-10.8)
--- NOTE | 2021-01-30 07:19 | Obstetrical Progress Note ---
Date of Service January 30, 2021 Assessment & Plan Admission and Anticipated Discharge Date Admission Date: January 29, 2021 Subjective Patient is seen and examined. She feels well, no complaints. Ambulating without dizziness Voiding without difficulty Tolerating regular diet with out N&V Bleeding is minimal No fever/ chills/ CP/ SOB/ N&V/ Leg pain Breast and bottle feeding without problems Lab Results 01/29/21 01/29/21 01/29/21 Range/Units 01:57 01:57 02:04 WBC 8.85 (4.8-10.8) K/uL RBC 3.98 L (4.2-5.4) M/uL Hgb 12.4 (12.0-16.0) g/dL Hct 34.9 L (37-47) % MCV 87.7 (80-100) fL MCH 31.2 (25-34) pg MCHC 35.5 (32-36) g/dL RDW Std Deviation 42.9 (36.4-46.3) fL RDW Coeff of Oh 13.5 (11.5-14.5) % Plt Count 207 (130-400) K/uL MPV 11.8 H (7.4-10.4) fL Amniotic Protein COVID-19 Eval [facility] SARS-CoV-2, RNA, NAAT NEGATIVE (NEGATIVE) 01/29/21 01/30/21 Range/Units 02:20 06:02 WBC 11.75 H (4.8-10.8) K/uL RBC 4.10 L (4.2-5.4) M/uL Hgb 12.8 (12.0-16.0) g/dL Hct 36.0 L (37-47) % MCV 87.8 (80-100) fL MCH 31.2 (25-34) pg MCHC 35.6 (32-36) g/dL RDW Std Deviation 43.6 (36.4-46.3) fL RDW Coeff of Oh 13.6 (11.5-14.5) % Plt Count 187 (130-400) K/uL MPV 11.7 H (7.4-10.4) fL Amniotic Protein POS COVID-19 Eval Order SARS-CoV-2, RNA, NAAT (NEGATIVE) Vital Signs Temp Pulse Pulse Resp BP BP Pulse Ox 01/30/21 03:30 36.6 C 69 18 118/75 98 01/29/21 23:20 36.6 C 62 16 106/70 98 01/29/21 21:10 37.0 C 85 18 117/73 01/29/21 19:50 18 01/29/21 19:46 86 118/57 L 01/29/21 19:31 81 122/57 L PE: General: Alert, orientedx3, NAD Abd: soft, NT, fundus firm, below Umbilicus Perineum intact, Lochia rubra minimal Ext; NT, no edema AP: 25 yo s/p , ppd# 1 VSS Afebrile doing well Continue routine care All questions were answered D/C home tomorrow Results & Data ([facility]) Vital Signs (Past 12 Hours) Vital Signs Temp Pulse Pulse Resp BP BP Pulse Ox 01/30/21 03:30 36.6 C 69 18 118/75 98 01/29/21 23:20 36.6 C 62 16 106/70 98 01/29/21 21:10 37.0 C 85 18 117/73 01/29/21 19:50 18 01/29/21 19:46 86 118/57 L 01/29/21 19:31 81 122/57 L
[2021-01-30] MEDS ORDERED: PRENATAL VITAMIN 1 TAB PO SCH ×2 (08:00→09:00)
[2021-01-30] MEDS: DOCUSATE SODIUM 100 MG CAP PO SCH ×2 (08:14→20:29)
[2021-01-30] MEDS: PRENATAL VITAMIN 1 TAB PO SCH (08:14)
[2021-01-30] MEDS: IBUPROFEN 600 MG TAB PO PRN ×2 (14:59→20:29)
[2021-01-30] MEDS ORDERED: bisacodyL 5 MG TABEC PO SCH ×2 (20:00)
[2021-01-31] MEDS: IBUPROFEN 600 MG TAB PO PRN (06:15)
[2021-01-31 06:28] LABS: Basophils # (auto) 0.01 K/uL (0-0.2); Basophils % (auto) 0.1 %; Eosinophils # (auto) 0.13 K/uL (0-0.5); Eosinophils % (auto) 1.2 %; Hematocrit (blood only) 37.7 % (37-47); Hemoglobin 12.7 g/dL (12.0-16.0); Immature Granulocytes # (auto) 0.04 K/uL (0.00-0.02); Immature Granulocytes % (auto) 0.4 %; Lymphocytes # (auto) 1.58 K/uL (1.2-3.4); Lymphocytes % (auto) 14.5 %; Mean Corpuscular Hemoglobin 29.7 pg (25-34); Mean Corpuscular Hgb Conc 33.7 g/dL (32-36); Mean Corpuscular Volume 88.3 fL (80-100); Mean Platelet Volume 11.6 fL (7.4-10.4); Monocytes # (auto) 0.82 K/uL (0.11-0.59); Monocytes % (auto) 7.6 %; Neutrophils # (auto) 8.28 K/uL (1.4-6.5); Neutrophils % (auto) 76.2 %; Platelet Count 190 K/uL (130-400); RDW Coefficient of Variation 13.8 % (11.5-14.5); RDW Standard Deviation 44.7 fL (36.4-46.3); Red Blood Count 4.27 M/uL (4.2-5.4); White Blood Count 10.86 K/uL (4.8-10.8)
[2021-01-31] MEDS ORDERED: BUPIVACAINE 0.25% 30 ML VIAL ONE (08:24)
[2021-01-31] MEDS ORDERED: SODIUM CHLORIDE 0.9% INJ 10 ML VIAL ONE (08:24)
[2021-01-31] MEDS ORDERED: ePHEDrine sulfate 50 MG/ML AMP ONE (08:24)
[2021-01-31] MEDS ORDERED: fentaNYL 2MCG/ML ROPIVACAINE 1.25MG/ML 100 ML BAG EPI ONE (08:24)
[2021-01-31] MEDS ORDERED: fentaNYL citrate 100 MCG/2 ML VIAL ONE (08:24)
[2021-01-31] MEDS: DOCUSATE SODIUM 100 MG CAP PO SCH (08:36)
[2021-01-31] MEDS: PRENATAL VITAMIN 1 TAB PO SCH (08:37)
--- NOTE | 2021-01-31 08:53 | Obstetrical Progress Note ---
Date of Service January 31, 2021 Assessment & Plan Admission and Anticipated Discharge Date Admission Date: January 29, 2021 Subjective Patient is seen and examined. She feels well, no complaints. Ambulating without dizziness Voiding without difficulty Tolerating regular diet with out N&V Bleeding is minimal No fever/ chills/ CP/ SOB/ N&V/ Leg pain Breast feeding without problems Vital Signs Temp Pulse Resp BP Pulse Ox 01/31/21 08:00 37 C 83 20 126/74 97 01/30/21 23:50 36.4 C L 76 16 143/74 H 01/30/21 20:15 36.9 C 89 18 136/79 01/30/21 16:15 36.7 C 84 19 124/74 01/30/21 12:50 36.4 C L 80 21 123/76 Vital Signs Temp Pulse Resp BP Pulse Ox 01/31/21 08:00 37 C 83 20 126/74 97 01/30/21 23:50 36.4 C L 76 16 143/74 H Lab Results 01/29/21 01/29/21 01/29/21 Range/Units 01:57 01:57 02:04 WBC 8.85 (4.8-10.8) K/uL RBC 3.98 L (4.2-5.4) M/uL Hgb 12.4 (12.0-16.0) g/dL Hct 34.9 L (37-47) % MCV 87.7 (80-100) fL MCH 31.2 (25-34) pg MCHC 35.5 (32-36) g/dL RDW Std Deviation 42.9 (36.4-46.3) fL RDW Coeff of Oh 13.5 (11.5-14.5) % Plt Count 207 (130-400) K/uL MPV 11.8 H (7.4-10.4) fL Immature Gran % (Auto) % Neut % (Auto) % Lymph % (Auto) % Page % (Auto) % Eos % (Auto) % Baso % (Auto) % Neut # (Auto) (1.4-6.5) K/uL Lymph # (Auto) (1.2-3.4) K/uL Page # (Auto) (0.11-0.59) K/uL Eos # (Auto) (0-0.5) K/uL Baso # (Auto) (0-0.2) K/uL Immature Gran # (Auto) (0.00-0.02) K/uL Amniotic Protein COVID-19 Eval [facility] SARS-CoV-2, RNA, NAAT NEGATIVE (NEGATIVE) 01/29/21 01/30/21 01/31/21 Range/Units 02:20 06:02 06:04 WBC 11.75 H 10.86 H (4.8-10.8) K/uL RBC 4.10 L 4.27 (4.2-5.4) M/uL Hgb 12.8 12.7 (12.0-16.0) g/dL Hct 36.0 L 37.7 (37-47) % MCV 87.8 88.3 (80-100) fL MCH 31.2 29.7 (25-34) pg MCHC 35.6 33.7 (32-36) g/dL RDW Std Deviation 43.6 44.7 (36.4-46.3) fL RDW Coeff of Oh 13.6 13.8 (11.5-14.5) % Plt Count 187 190 (130-400) K/uL MPV 11.7 H 11.6 H (7.4-10.4) fL Immature Gran % (Auto) 0.4 % Neut % (Auto) 76.2 % Lymph % (Auto) 14.5 % Page % (Auto) 7.6 % Eos % (Auto) 1.2 % Baso % (Auto) 0.1 % Neut # (Auto) 8.28 H (1.4-6.5) K/uL Lymph # (Auto) 1.58 (1.2-3.4) K/uL Page # (Auto) 0.82 H (0.11-0.59) K/uL Eos # (Auto) 0.13 (0-0.5) K/uL Baso # (Auto) 0.01 (0-0.2) K/uL Immature Gran # (Auto) 0.04 H (0.00-0.02) K/uL Amniotic Protein POS COVID-19 Eval Order SARS-CoV-2, RNA, NAAT (NEGATIVE) PE: General: Alert, orientedx3, NAD Abd: soft, NT, fundus firm, below Umbilicus Perineum intact, Lochia rubra minimal Ext; NT, no edema AP: 25 yo s/p , ppd# 2 VSS Afebrile doing well Continue routine care All questions were answered D/C home , f/u in office Discussed when to call Results & Data ([facility]) Vital Signs (Past 12 Hours) Vital Signs Temp Pulse Resp BP Pulse Ox 01/31/21 08:00 37 C 83 20 126/74 97 01/30/21 23:50 36.4 C L 76 16 143/74 H
== END 2021-01-31 11:25 | disposition home or self-care (01) | DRG 807 ==
LOC: OPB 01:17 → 4S1 01:18 → 4S2 20:15
DX: Z37.0 Single live birth; Z3A.37 37 weeks gestation of pregnancy; O42.02 Full-term premature rupture of membranes, onset of labor within 24 hours of rupture; O70.0 First degree perineal laceration during delivery